=== PATIENT | male | born 1990 | race Caucasian/White ===

== ENCOUNTER 2022-05-01 16:00 | Outpatient (RCR) | payer OTHER, SELFPAY | END 2022-05-23 10:09 | disposition home or self-care (01) | PROVIDERS: PCP Family Medicine; Visit Provider Family Medicine | DX: M54.9 Dorsalgia, unspecified (principal) | CPT/HCPCS: 97110; 97140; 97161 ==

== ENCOUNTER 2024-08-14 10:14 | Outpatient (CLI) | payer OTHER, SELFPAY | END 2024-08-14 10:15 | disposition home or self-care (01) | LOC: FBOREF 10:15 | PROVIDERS: PCP Family Medicine; Visit Provider Family Medicine | DX: R79.89 Other specified abnormal findings of blood chemistry (principal) | CPT/HCPCS: 82977 ==

== ENCOUNTER 2024-08-20 07:06 | Outpatient (CLI) | payer OTHER, SELFPAY ==
--- NOTE | 2024-08-20 07:15 | CRLHL7_ITS ---
For Patients: As a result of the Century Cures Act, medical imaging exams and procedure reports are released immediately into your electronic medical record. You may view this report before your referring provider. If you have questions, please contact your health care provider. CLINICAL HISTORY: ABNORMAL LEVELS OTHER SERUM ENZYMES COMPARISON: none TECHNIQUE: Real time chaparro scale imaging and color Doppler analysis was performed of the abdomen. FINDINGS: Sonographic imaging demonstrates normal size and uniform echotexture of the liver. The spleen measures 12.4 cm. Main portal vein measures 1.2 cm with antegrade flow measuring 15 cm/second. The pancreas is obscured by overlying bowel gas. The proximal abdominal aorta and IVC appear normal. There is no evidence of ascites. The gallbladder is of normal size and there is no evidence of sludge or stones within the gallbladder lumen. The gallbladder wall measures 1.2 mm in thickness. The common bile duct measures 4.8 mm in size within the catrachito hepatis. Echogenic nonshadowing focus within the left kidney measures 6 x 5 x 5 millimeters. The right kidney measures 11.3 cm in length and the left kidney measures 10.9 cm. There is no evidence of hydronephrosis. IMPRESSION: Normal ultrasound of the liver and gallbladder. 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 Mild splenomegaly. Dictated by Jacob Montana MD @ 08/20/2024 10:25:00 AM (Electronically Signed)
== END 2024-08-20 07:07 | disposition home or self-care (01) ==
LOC: US 07:06
PROVIDERS: PCP Family Medicine; Visit Provider Family Medicine
DX: R74.8 Abnormal levels of other serum enzymes (principal); R16.1 Splenomegaly, not elsewhere classified
CPT/HCPCS: 76700

== ENCOUNTER 2024-10-01 08:10 | Outpatient (CLI) | payer OTHER, SELFPAY | END 2024-10-01 08:11 | disposition home or self-care (01) | LOC: NFLDREF 10-05 03:32 | PROVIDERS: PCP Family Medicine; Referring Provider Family Medicine; Visit Provider Family Medicine | DX: R74.8 Abnormal levels of other serum enzymes (principal); R79.89 Other specified abnormal findings of blood chemistry | CPT/HCPCS: 82977 ==